=== PATIENT | male | born 1980 | race Caucasian/White ===

== ENCOUNTER 2016-08-05 06:05 | Emergency (ER) | payer MEDICAID ==
[2016-08-05] MEDS ORDERED: DEXAMETHASONE 10 MG/ML VIAL PO STA (07:24)
[2016-08-05] MEDS ORDERED: CHERRY SYRUP 10 ML UDC PO ONE (07:36)
[2016-08-05] MEDS ORDERED: DEXAMETHASONE 10 MG/ML VIAL ONE (07:36)
== END 2016-08-05 07:42 | disposition home or self-care (01) ==
DX: M10.9 Gout, unspecified (principal)
CPT/HCPCS: 99282; 99283; A9270

== ENCOUNTER 2016-09-02 10:01 | Outpatient (CLI) | payer MEDICAID | END 2016-09-02 10:02 | disposition home or self-care (01) | DX: Z00.00 Encounter for general adult medical examination without abnormal findings (principal); M10.9 Gout, unspecified ==

== ENCOUNTER 2016-09-22 15:16 | Outpatient (CLI) | payer MEDICAID | END 2016-09-22 15:17 | disposition home or self-care (01) | DX: G47.30 Sleep apnea, unspecified (principal); G47.8 Other sleep disorders; R06.83 Snoring; G47.10 Hypersomnia, unspecified ==

== ENCOUNTER 2016-10-27 15:43 | Outpatient (CLI) | payer MEDICAID | END 2016-10-27 15:44 | disposition home or self-care (01) | DX: G47.33 Obstructive sleep apnea (adult) (pediatric) (principal) ==

== ENCOUNTER 2016-11-25 08:35 | Outpatient (CLI) | payer MEDICAID | END 2016-11-25 08:36 | disposition home or self-care (01) | DX: N50.9 Disorder of male genital organs, unspecified (principal) ==

== ENCOUNTER 2016-12-02 05:42 | Emergency (ER) | payer MEDICAID ==
[2016-12-02] MEDS ORDERED: methylPREDNISolone ACETATE 80 MG/ML VIAL IM ONE (05:56)
[2016-12-02] MEDS ORDERED: methylPREDNISolone SUCCINATE 40 MG/ML VIAL ONE ×2 (05:57→05:59)
[2016-12-02] MEDS ORDERED: LIDOCAINE 2% 10 ML MDV ONE (05:57)
--- NOTE | 2016-12-02 06:22 | ED Physician Documentation ---
PD HPI LOWER EXT INJURY - Stated complaint Stated Complaint: LAKISHA FOOT PAIN - Chief complaint Chief Complaint: Ext Problem - History obtained from History obtained from: Patient, Family - History of Present Illness PD HPI LOW EXT INJURY LOCATION: Right, Knee Where injury occurred: Home Timing - onset: How many days ago (3) Timing - duration: Days Timing - details: Gradual onset, Still present Improved by: Rest, Immobilization Worsened by: Moving, Palpating Associated symptoms: Swelling. No: Weakness, Numbness, Tingling Similar symptoms before: Has not had sx before Recently seen: Not recently seen - Additional information Additional information: Patient is a 36 year old male wiht no significant past medical history who is presenting to the emergency department for right sided knee pain and swelling. patient states that the symptoms have been going on for the last few days. Patient denies any trauma but does report a history of gout in the past. Review of Systems Constitutional: denies: Fever, Chills Eyes: denies: Loss of vision, Photophobia Ears: denies: Ear pain, Drainage/discharge Nose: denies: Rhinorrhea / runny nose, Congestion, Epistaxis Throat: denies: Sore throat Cardiac: denies: Chest pain / pressure, Palpitations Respiratory: denies: Cough, Hemoptysis, Wheezing GI: denies: Abdominal Pain, Nausea, Vomiting, Constipation, Diarrhea : denies: Dysuria, Frequency Skin: denies: Rash, Lesions Musculoskeletal: reports: Extremity pain, Joint pain, Extremity swelling, Joint swelling, Pain with weight bearing. denies: Neck pain, Back pain Neurologic: denies: Generalized weakness, Focal weakness, Numbness, Difficulty speaking Immunocompromised: denies: Immunocompromised PD PAST MEDICAL HISTORY - Past Medical History Past Medical History: Yes Musculoskeletal: Gout - Past Surgical History Past Surgical History: Yes HEENT: Other - Present Medications Home Medications: Ambulatory Orders Medication Instructions Recorded Confirmed Indomethacin 25 mg PO Q6HR PRN #20 capsule 08/05/16 - Allergies Allergies/Adverse Reactions: Allergies Allergy/AdvReac Type Severity Reaction Status Date / Time No Known Drug Allergies Allergy Verified 08/05/16 06:29 - Social History Does the pt smoke?: No Smoking Status: Never smoker Does the pt drink ETOH?: Yes ETOH Use: Beer Does the pt have substance abuse?: No Substance Use and Type: Marijuana - Immunizations Immunizations are current?: Yes PD ED PE NORMAL - Vitals Vital signs reviewed: Yes - General General: Alert and oriented X 3, No acute distress, Well developed/nourished - HEENT HEENT: Atraumatic, PERRL, Pharynx benign - Neck Neck: Supple, no meningeal sign, No JVD - Cardiac Cardiac: RRR, No murmur - Respiratory Respiratory: No respiratory distress, Clear bilaterally - Abdomen Abdomen: Soft, Non tender, Non distended - Derm Derm: Normal color, Warm and dry, No rash - Neuro Neuro: Alert and oriented X 3, hook loader 2-12 intact, No motor deficit, No sensory deficit, Normal speech - Psych Psych: Normal mood, Normal affect PD ED PE EXPANDED - Extremities Extremities: Swelling, Joint effusion, Right knee (right knee swelling and effusion without surrounding erythema ) Results - Vitals Vitals: Vital Signs - 24 hr 12/02/16 05:49 Temperature 36.2 C L Heart Rate 87 Respiratory 20 Rate Blood Pressure 152/100 H O2 Saturation 100 Oxygen O2 Source Room air - Labs Labs: Laboratory Tests 12/02/16 06:11 Fluid Source SYNOVIAL Fluid Color YELLOW Fluid Clarity CLOUDY Fluid WBC 71335 Fluid RBC 9612 Procedures - Arthrocentesis Joint: Knee Preparation: Sterile prep and drape, Ultrasound used Anesthesia: Lidocaine 2% Fluid: Sent for cell count, Cloudy, Sent for crystals, Sent for culture, Fluid obtained - cc (20), Sent for glucose, Sent for protein Aftercare: No complications, Patient tolerated well PD MEDICAL DECISION MAKING - ED course Complexity details: reviewed old records, reviewed results, re-evaluated patient , considered differential, d/w patient ED course: Patient was seen and examined at bedside. artherocentisis was performed as described above. Patient tolerated the treatment well. Patient was signed over to Dr. Almaraz pending results. Departure - Departure Clinical Impression: Knee effusion, right Condition: Good Instructions: ED Effusion Knee
[2016-12-02 07:06] LABS: CC,BF RBC 9612 /mm^3
[2016-12-02 07:07] LABS: BF CLARITY CLOUDY; BF COLOR YELLOW
[2016-12-02] MEDS ORDERED: KETOROLAC 60 MG/2 ML VIAL ONE (07:33)
[2016-12-02] MEDS ORDERED: KETOROLAC 60 MG/2 ML VIAL IM STA (07:33)
[2016-12-02 07:34] LABS: LYMPHOCYTES %,BODY FLUID 0; MESOTHELIAL %, BF 0 %
[2016-12-02 08:30] LABS: BASOPHILS # (AUTO) 0.1 10^3/uL (0.0-0.1); BASOPHILS % (AUTO) 0.5 %; EOSINOPHILS # (AUTO) 0.1 10^3/uL (0.0-0.7); EOSINOPHILS % (AUTO) 1.1 %; HCT - HEMATOCRIT 43.3 % (42.0-52.0); HGB - HEMOGLOBIN 15.2 g/dL (14.0-18.0); LYMPHOCYTES # (AUTO) 1.3 10^3/uL (1.5-3.5); MEAN CORPUSCULAR HEMOGLOBIN 32.8 pg (27.0-31.0); MEAN CORPUSCULAR VOLUME 93.7 fL (80.0-94.0); MEAN PLATELET VOLUME 8.5 fL (7.4-11.4); MONOCYTES # (AUTO) 0.9 10^3/uL (0.0-1.0); MONOCYTES % (AUTO) 8.5 %; NEUTROPHILS # (AUTO) 8.4 10^3/uL (1.5-6.6); NEUTROPHILS % (AUTO) 77.9 %; RED BLOOD COUNT 4.63 10^6/uL (4.70-6.10); RED CELL DISTRIBUTION WIDTH 13.1 % (12.0-15.0); UNCORRECTED WHITE BLOOD COUNT 10.8 x10^3/uL; WHITE BLOOD COUNT 10.8 x10^3/uL (4.8-10.8)
[2016-12-02 08:44] LABS: ALBUMIN/GLOBULIN RATIO 1.1 (1.0-2.2); BILIRUBIN,TOTAL 1.5 mg/dL (0.2-1.0); CALCIUM 9.6 mg/dL (8.5-10.3); CREATININE 0.8 mg/dL (0.6-1.2); POTASSIUM 4.2 mmol/L (3.5-5.0); TOTAL PROTEIN 8.1 g/dL (6.7-8.2)
[2016-12-02] MEDS ORDERED: ONDANSETRON 4 MG/2 ML VIAL IVP STA (08:45)
[2016-12-02] MEDS ORDERED: HYDROmorphone 1 MG/ML SYRINGE IVP STA (08:45)
[2016-12-02] MEDS ORDERED: ONDANSETRON 4 MG/2 ML VIAL ONE (08:48)
[2016-12-02] MEDS ORDERED: HYDROmorphone 1 MG/ML SYRINGE ONE (08:48)
--- NOTE | 2016-12-02 08:48 | ED Physician Documentation ---
History of Present Illness - Stated complaint Stated Complaint: R KNEE PX - Chief complaint Chief Complaint: Ext Problem - History obtained from History obtained from: Patient - History of Present Illness Timing: How many days ago (3) - Additonal information Additional information: 36 y/o male with 3 days of right knee swelling and pain has severe pain this morning and this did not seem to improve with the colchicine. His care is turned over to me at shift change from Dr. Arnold with pending studies on his knee effusion. Review of Systems Constitutional: reports: Chills Musculoskeletal: reports: Joint pain, Joint swelling, Pain with weight bearing PD PAST MEDICAL HISTORY - Past Medical History Past Medical History: Yes Musculoskeletal: Gout - Past Surgical History Past Surgical History: Yes HEENT: Other - Present Medications Home Medications: Ambulatory Orders Medication Instructions Recorded Confirmed Indomethacin 25 mg PO Q6HR PRN #20 capsule 08/05/16 HYDROcod/ACETAM 5/325 [[place] 5/325] 1 - 2 ea PO Q6H PRN #15 tablet 12/02/16 - Allergies Allergies/Adverse Reactions: Allergies Allergy/AdvReac Type Severity Reaction Status Date / Time No Known Drug Allergies Allergy Verified 08/05/16 06:29 - Social History Does the pt smoke?: No Smoking Status: Never smoker Does the pt drink ETOH?: Yes ETOH Use: Beer Does the pt have substance abuse?: No Substance Use and Type: Marijuana - Immunizations Immunizations are current?: Yes PD ED PE NORMAL - Vitals Vital signs reviewed: Yes - General General: Alert and oriented X 3, No acute distress, Well developed/nourished - HEENT HEENT: Atraumatic, PERRL - Respiratory Respiratory: No respiratory distress - Derm Derm: Normal color, Warm and dry, Other - Extremities Extremities: No deformity, No edema, Other (There is tenderness swelling and pain to the right knee. ) - Neuro Neuro: No motor deficit, No sensory deficit, Normal speech - Psych Psych: Normal mood, Normal affect Results - Vitals Vitals: Vital Signs - 24 hr 12/02/16 12/02/16 05:49 07:43 Temperature 36.2 C L 36.8 C Heart Rate 87 81 Respiratory 20 15 Rate Blood Pressure 152/100 H 142/89 H O2 Saturation 100 96 Oxygen O2 Source Room air - Labs Labs: Microbiology 12/02/16 06:11 Body Fluid Culture - Preliminary Synovial Fluid Laboratory Tests 12/02/16 12/02/16 12/02/16 06:11 08:10 08:10 WBC 10.8 RBC 4.63 L Hgb 15.2 Hct 43.3 MCV 93.7 MCH 32.8 H MCHC 35.0 RDW 13.1 Plt Count 209 MPV 8.5 Neut # 8.4 H Lymph # 1.3 L [place] # 0.9 Eos # 0.1 Baso # 0.1 Absolute Nucleated RBC 0.00 Nucleated RBCs 0.0 ESR 6 Sodium Potassium Chloride Carbon Dioxide Anion Gap BUN Creatinine Estimated GFR (MDRD) Glucose Calcium Total Bilirubin AST ALT Alkaline Phosphatase C-Reactive Protein Total Protein Albumin Globulin Albumin/Globulin Ratio Lipase Fluid Source SYNOVIAL Fluid Color YELLOW Fluid Clarity CLOUDY Fluid WBC 34476 Fluid RBC 9612 Fluid Neutrophils % 95.0 Fluid Lymphocytes % 0 Fluid Monocytes % 5.0 Fld Mesothelial Cell % 0 Fluid Crystals NONE SEEN 12/02/16 08:10 WBC RBC Hgb Hct MCV MCH MCHC RDW Plt Count MPV Neut # Lymph # [place] # Eos # Baso # Absolute Nucleated RBC Nucleated RBCs ESR Sodium 136 Potassium 4.2 Chloride 99 L Carbon Dioxide 27 Anion Gap 10.0 BUN 6 Creatinine 0.8 Estimated GFR (MDRD) 108 Glucose 119 H Calcium 9.6 Total Bilirubin 1.5 H AST 87 H ALT 53 Alkaline Phosphatase 56 C-Reactive Protein 7.1 H Total Protein 8.1 Albumin 4.3 Globulin 3.8 Albumin/Globulin Ratio 1.1 Lipase 29 Fluid Source Fluid Color Fluid Clarity Fluid WBC Fluid RBC Fluid Neutrophils % Fluid Lymphocytes % Fluid Monocytes % Fld Mesothelial Cell % Fluid Crystals PD MEDICAL DECISION MAKING - ED course Complexity details: reviewed old records, reviewed results, re-evaluated patient , considered differential, d/w patient ED course: 36 y/o male with right sided knee pain and a good sized effusion has bad enough pain that he is not able to bear weight. His synovial fluid is with 53K WBC, 95 % neutrophils, his WBC is normal, ESR is normal and CRP is 7.1. There were no organisms seen on gram stain and the patient requires narcotic pain medication for relief of the pain. Dr. Walker is consulted in the case by phone and recommends pain management and follow up with him in 1-2 days for further treatment as indicated while awaiting culture results. Departure - Departure Disposition: 01 Home, Self Care Clinical Impression: Knee effusion, right Condition: Good Instructions: ED Effusion Knee Follow-Up: Cari Claire PA-C [Primary Care Provider] - Da Baltazar MD [Provider Admit Priv/Credential] - Prescriptions: HYDROcod/ACETAM 5/325 [[place] 5/325] 1 - 2 ea PO Q6H PRN #15 tablet PRN Reason: Pain Comments: follow up with Dr. Oneal in 1-2 days for results of your culture and further treatment. Forms: Activity restrictions
[2016-12-02 11:02] VITALS: BP 135/84
[2016-12-06 14:12] LABS: TEST RESULT REPORT (())
[2016-12-09 00:18] LABS: TEST RESULT REPORT (())
[2016-12-09 17:27] LABS: TEST RESULT REPORT (())
== END 2016-12-02 11:04 | disposition home or self-care (01) ==
LOC: ED 05:42
DX: M25.461 Effusion, right knee (principal)
CPT/HCPCS: 20605; 80053; 81599; 82945; 83690; 84560; 85025; 85651; 86140; 86430; 87070; 87205; 89051; 89060; 96372; 96374; 96375; 99284; J1170

== ENCOUNTER 2017-02-17 15:56 | Outpatient (CLI) | payer MEDICAID | END 2017-02-17 15:57 | disposition home or self-care (01) | LOC: SC 15:56 | PROVIDERS: ATTEND Nurse Practitioner Family | DX: G47.33 Obstructive sleep apnea (adult) (pediatric) (principal) | CPT/HCPCS: 99212; 99214 ==

== ENCOUNTER 2018-01-13 23:58 | Outpatient (CLI) | payer OTHER | END 2018-01-13 23:59 | disposition critical access hospital (66) | LOC: EMS 23:58 | PROVIDERS: ATTEND Surgery | DX: R51 Headache (principal); V47.5XXA Car driver injured in collision with fixed or stationary object in traffic accident, initial encounter; Y92.410 Unspecified street and highway as the place of occurrence of the external cause | CPT/HCPCS: A0425; A0427 ==

== ENCOUNTER 2018-01-14 00:58 | Emergency (ER) | payer MEDICAID, OTHER ==
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
[2018-01-14 03:57] VITALS: BP 138/88
== END 2018-01-14 03:55 | disposition home or self-care (01) ==
LOC: EDUNIT# → ED 00:58
DX: S09.90XA Unspecified injury of head, initial encounter (principal); S29.9XXA Unspecified injury of thorax, initial encounter; V47.5XXA Car driver injured in collision with fixed or stationary object in traffic accident, initial encounter; Y92.488 Other paved roadways as the place of occurrence of the external cause; M10.9 Gout, unspecified
CPT/HCPCS: 36415; 70450; 71046; 99283

== ENCOUNTER 2021-09-12 20:52 | Outpatient (CLI) | payer SELFPAY | END 2021-09-12 20:53 | disposition critical access hospital (66) | LOC: EMS 20:52 | DX: R41.82 Altered mental status, unspecified (principal) | CPT/HCPCS: A0425; A0429 ==

== ENCOUNTER 2021-09-12 21:15 | Emergency (ER) | payer SELFPAY ==
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
[2021-09-12 21:41] LABS: BASOPHILS # (AUTO) 0.1 10^3/uL (0.0-0.1); BASOPHILS % (AUTO) 1.8 %; EOSINOPHILS # (AUTO) 0.1 10^3/uL (0.0-0.7); HGB - HEMOGLOBIN 15.5 g/dL (14.0-18.0); LYMPHOCYTES # (AUTO) 2.1 10^3/uL (1.5-3.5); LYMPHOCYTES % (AUTO) 26.5 %; MEAN CORPUSCULAR HEMOGLOBIN 32.7 pg (27.0-31.0); MEAN CORPUSCULAR HGB CONC 34.4 g/dL (32.0-36.0); MEAN CORPUSCULAR VOLUME 94.9 fL (80.0-94.0); MEAN PLATELET VOLUME 9.8 fL (7.4-11.4); MONOCYTES # (AUTO) 0.9 10^3/uL (0.0-1.0); MONOCYTES % (AUTO) 11.4 %; NEUTROPHILS # (AUTO) 4.7 10^3/uL (1.5-6.6); NEUTROPHILS % (AUTO) 59.2 %; PLT - PLATELET COUNT 251 10^3/uL (130-450); RED BLOOD COUNT 4.74 10^6/uL (4.70-6.10); WHITE BLOOD COUNT 7.9 x10^3/uL (4.8-10.8)
[2021-09-12 21:51] LABS: ALBUMIN 4.6 g/dL (3.2-5.5); ALBUMIN/GLOBULIN RATIO 1.4 (1.0-2.2); BILIRUBIN,TOTAL 0.9 mg/dL (0.2-1.0); CALCIUM 8.5 mg/dL (8.5-10.3); CREATININE 0.8 mg/dL (0.6-1.2); ETOH - ETHANOL 482.6 mg/dL; POTASSIUM 3.5 mmol/L (3.5-5.0)
--- NOTE | 2021-09-12 22:24 | XRAY Report ---
PROCEDURE: Chest 2 View X-Ray INDICATIONS: AMS TECHNIQUE: 2 views of the chest. COMPARISON: Chest radiographs 01/14/2018. FINDINGS: Surgical changes and devices: None. Lungs and pleura: No pleural effusions or pneumothorax. Lungs are clear. Mediastinum: Mediastinal contours are normal. Heart size is normal. Bones and chest wall: No suspicious bony abnormalities. Soft tissues appear unremarkable. IMPRESSION: No acute cardiopulmonary abnormality. Reviewed by: Maico Wyatt MD on 09/12/2021 10:23 PM [facility] Approved by: Maico Wyatt MD on 09/12/2021 10:23 PM PST Station ID: [id number]
--- NOTE | 2021-09-12 22:25 | CT Report ---
PROCEDURE: HEAD WO INDICATIONS: AMS TECHNIQUE: Noncontrast 4.5 mm thick angled axial sections acquired from the foramen magnum to the vertex. For r adiation dose reduction, the following was used: automated exposure control, adjustment of mA and/or kV according to patient size. COMPARISON: CT head 01/14/2018. FINDINGS: Image quality: Excellent. CSF spaces: Basal cisterns are patent. No extra-axial fluid collections. Ventricles are normal in size and shape. Brain: No midline shift. No intracranial masses or hemorrhage. Blair-white matter interface is norm al. Skull and face: Calvarium and visualized facial bones are intact, without suspicious lesions. Sinuses: Visualized sinuses and mastoids are clear. IMPRESSION: No acute intracranial abnormality. Reviewed by: Maico Wyatt MD on 09/12/2021 10:24 PM PST Approved by: Maico Wyatt MD on 09/12/2021 10:24 PM PST Station ID: [id number]
[2021-09-12 22:56] VITALS: BP 148/96
== END 2021-09-12 23:01 | disposition home or self-care (01) ==
LOC: EDBD → EDUNIT# → ED 21:15
DX: F10.920 Alcohol use, unspecified with intoxication, uncomplicated (principal)
CPT/HCPCS: 36415; 80053; 80320; 83690; 85025; 93005; 99283; 99284

== ENCOUNTER 2023-03-11 22:37 | Outpatient (CLI) | payer SELFPAY | END 2023-03-11 23:59 | disposition EMS.NT | LOC: EMS 22:37 | DX: U07.1 COVID-19 (principal) ==

== ENCOUNTER 2023-06-28 14:42 | Emergency (ER) | payer OTHER ==
[2023-06-28 15:19] VITALS: BP 150/100; O2SAT 97
[2023-06-28] MEDS ORDERED: LIDOCAINE 1%-EPI 1:100000 20 ML MDV SUBQ STA (15:42)
--- NOTE | 2023-06-28 15:45 | ED Physician Documentation ---
PD HPI LOWER EXT INJURY - Stated complaint Stated Complaint: LT KNEE PX - Chief complaint Chief Complaint: Ext Problem - History obtained from History obtained from: Patient - Additional information Additional information: He has a history of gout in the knee and about 6 days ago started develop knee pain with increased swelling over the last few days. There was no trauma. He does not feel sick or feverish. PD PAST MEDICAL HISTORY - Past Medical History Past Medical History: No Musculoskeletal: Gout - Past Surgical History Past Surgical History: Yes HEENT: Other - Present Medications Home Medications: Ambulatory Orders Medication Instructions Recorded Confirmed Indomethacin 25 mg PO Q6HR PRN #20 capsule 08/05/16 HYDROcod/ACETAM 5/325 [[place] 5/325] 1 - 2 ea PO Q6H PRN #15 tablet 12/02/16 - Allergies Allergies/Adverse Reactions: Allergies Allergy/AdvReac Type Severity Reaction Status Date / Time No Known Drug Allergies Allergy Verified 06/28/23 15:17 - Social History Does the pt smoke?: No Smoking Status: Never smoker Does the pt drink ETOH?: Yes Does the pt have substance abuse?: Yes Substance Use and Type: Marijuana - Immunizations Immunizations are current?: Yes - POLST Patient has POLST: No PD ED PE NORMAL - Vitals Vital signs reviewed: Yes - General General: Alert and oriented X 3, No acute distress - Extremities Extremities: Other (He has a large effusion of the left knee but without much in the way of warmth or redness. No specific tenderness.) - Neuro Neuro: Alert and oriented X 3, Normal speech Results - Vitals Vitals: Vital Signs - 24 hr 06/28/23 15:13 Temperature 36.9 C Heart Rate 106 H Respiratory 16 Rate Blood Pressure 150/100 H O2 Saturation 97 Oxygen O2 Source Room air - Labs Labs: Laboratory Tests 06/28/23 06/28/23 16:05 16:05 Fluid Source SYNOVIAL Fluid Color YELLOW Fluid Clarity CLOUDY Fluid WBC 63845 Fluid RBC < 3000 Fluid Neutrophils % 68 Fluid Lymphocytes % 5 Fluid Monocytes % 7 Fluid Eosinophils % 8 Fluid Macrophages % 12 Fld Mesothelial Cell % Not Reportable Fluid Crystals NONE SEEN Procedures - Arthrocentesis Joint: Knee, Left Preparation: Consent obtained, Sterile prep and drape Anesthesia: Lidocaine 1% Fluid: Sent for cell count, Sent for crystals, Sent for culture, Fluid obtained - cc (80ml) Aftercare: Dressing applied, Other (Injected 5 mL 0.5% ropivacaine sterilely into the joint), Patient tolerated well PD Medical Decision Making - ED course ED course: He has had gout in that knee before and now has a large atraumatic effusion. Clinically does not look infected. Therapeutic/diagnostic arthrocentesis done with 80 mL removed from the left knee with symptomatic relief. Analysis of the synovial fluid initially shows a white count and differential most consistent with some sort of inflammatory issue but negative crystal exam. Departure - Departure Disposition: 01 Home, Self Care Clinical Impression: Knee effusion, left Condition: Good Record reviewed to determine appropriate education?: Yes Instructions: ED Effusion Knee Follow-Up: [facility] [Provider Group] Comments: I will call you [phone] if any concerning findings of infection are found on the knee fluid. That said it does not look infected clinically. Tylenol and/or ibuprofen as needed for the pain but she should be feeling much better now that the fluid is drained. Reasonable to follow-up with one of our orthopedic surgeons and the number is on this form. Return for new or worsening symptoms. Forms: PCP List Discharge Date/Time: 06/28/23 16:18
[2023-06-28] MEDS ORDERED: ROPIVACAINE 0.5% PF 20 ML VIAL SUBQ STA (15:48)
--- NOTE | 2023-06-28 16:41 | XRAY Report ---
PROCEDURE: Knee 4 View LT INDICATIONS: Trauma TECHNIQUE: 3 views of the knee(s) were acquired. COMPARISON: None. FINDINGS: Bones: No fractures or dislocations. No suspicious bony lesions. Mild tricompartmental periarticu lar osteophyte formation. Soft tissues: No knee joint effusion. No suspicious soft tissue calcifications or masses. IMPRESSION: Osteoarthritis. No acute fracture. No osseous lesion. If symptoms and/or clinical suspicion for patho logy continue, further assessment with repeat plain films, or advanced imaging (e.g., CT, MRI, or bon e scan) is recommended for further assessment. Reviewed by: Umm Negrete MD on 06/28/2023 4:39 PM PST Approved by: Umm Negrete MD on 06/28/2023 4:39 PM PST Station ID: [id number]
[2023-06-28 16:42] LABS: CC,BF RBC < 3000 /mm^3; CC,BF WBC 14090 /mm^3
[2023-06-28 16:43] LABS: BF SOURCE SYNOVIAL
[2023-06-28 16:44] LABS: BF CLARITY CLOUDY; BF COLOR YELLOW
[2023-06-28 17:00] LABS: LYMPHOCYTES %,BODY FLUID 5 %; NEUTROPHILS %, BF 68 %
[2023-06-28 17:01] LABS: EOSINOPHILS %,BODY FLUID 8 %; MACROPHAGES %,BODY FLUID 12 %; MONOCYTES %,BODY FLUID 7 %
== END 2023-06-28 16:18 | disposition home or self-care (01) ==
LOC: ED 14:42
DX: M25.462 Effusion, left knee (principal)
CPT/HCPCS: 20610; 87070; 87205; 89051; 89060; 99283

== ENCOUNTER 2023-10-18 14:16 | Outpatient (CLI) | payer OTHER ==
[2023-10-18 19:55] LABS: BASOPHILS # (AUTO) 0.1 10^3/uL (0.0-0.1); BASOPHILS % (AUTO) 0.7 %; EOSINOPHILS # (AUTO) 0.3 10^3/uL (0.0-0.7); EOSINOPHILS % (AUTO) 3.4 %; HCT - HEMATOCRIT 46.6 % (42.0-52.0); HGB - HEMOGLOBIN 15.3 g/dL (14.0-18.0); LYMPHOCYTES % (AUTO) 27.1 %; MEAN CORPUSCULAR HGB CONC 32.8 g/dL (32.0-36.0); MEAN CORPUSCULAR VOLUME 94.3 fL (80.0-94.0); MEAN PLATELET VOLUME 10.9 fL (7.4-11.4); MONOCYTES # (AUTO) 0.8 10^3/uL (0.0-1.0); MONOCYTES % (AUTO) 10.5 %; NEUTROPHILS # (AUTO) 4.4 10^3/uL (1.5-6.6); NEUTROPHILS % (AUTO) 58.2 %; PLT - PLATELET COUNT 249 10^3/uL (130-450); RED BLOOD COUNT 4.94 10^6/uL (4.70-6.10); RED CELL DISTRIBUTION WIDTH 12.3 % (12.0-15.0); WHITE BLOOD COUNT 7.5 x10^3/uL (4.8-10.8)
[2023-10-18 20:08] LABS: ALBUMIN 4.5 g/dL (3.2-5.5); ALBUMIN/GLOBULIN RATIO 1.7 (1.0-2.2); ALKALINE PHOSPHATASE 40 IU/L (42-121); ALT ALANINE AMINOTRANSFERASE 11 IU/L (10-60); AST ASPARTATE AMINOTRANSFERASE 20 IU/L (10-42); BILIRUBIN,TOTAL 0.8 mg/dL (0.2-1.0); BUN - BLOOD UREA NITROGEN 14 mg/dL (6-20); CALCIUM 9.8 mg/dL (8.5-10.3); CARBON DIOXIDE - CO2 27 mmol/L (21-32); CHLORIDE 102 mmol/L (101-111); CHOL/HDL RATIO 4.1 (<5.0); CHOLESTEROL 235 mg/dL; CREATININE 0.8 mg/dL (0.6-1.3); GFR - MDRD 105 (>89); GLUCOSE 91 mg/dL (74-104); HDL CHOLESTEROL 57 mg/dL; LDL CHOLESTEROL,CALCULATED 155 mg/dL; LDL/HDL RATIO 2.7 (<3.6); POTASSIUM 3.9 mmol/L (3.5-4.5); SODIUM 136 mmol/L (135-145); TOTAL PROTEIN 7.2 g/dL (6.4-8.9); TRIGLYCERIDES 117 mg/dL (48-352); VLDL CHOLESTEROL 23 mg/dL
[2023-10-18 20:22] LABS: THYROID STIMULATING HORMONE 1.89 uIU/mL (0.34-5.60)
== END 2023-10-18 14:17 | disposition home or self-care (01) ==
LOC: LAB.S 14:16
PROVIDERS: ATTEND Physician Assistant Medical
DX: Z00.00 Encounter for general adult medical examination without abnormal findings (principal)
CPT/HCPCS: 36415; 80053; 80061; 83721; 84443; 85025

== ENCOUNTER 2023-11-30 23:56 | Emergency (ER) | payer SELFPAY ==
[2023-12-01 00:27] LABS: BILIRUBIN,URINE NEGATIVE (NEGATIVE); GLUCOSE, URINE (UA) NEGATIVE (NEGATIVE); KETONES,URINE (UA) NEGATIVE (NEGATIVE); LEUKOCYTE ESTERASE, URINE NEGATIVE (NEGATIVE); NITRITE,URINE NEGATIVE (NEGATIVE); OCCULT BLOOD,URINE NEGATIVE (NEGATIVE); PH,URINE 6.5 PH (5.0-7.5); PROTEIN,URINE NEGATIVE (NEGATIVE); UROBILINOGEN,URINE 0.2 (NORMAL) E.U./dL (NORMAL)
[2023-12-01 00:30] LABS: CLARITY,URINE CLEAR (CLEAR)
[2023-12-01 00:39] LABS: AMPHETAMINE SCREEN,URINE NEGATIVE (NEGATIVE); BARBITURATE SCREEN,UR NEGATIVE (NEGATIVE); BENZODIAZEPINES SCREEN, URINE POSITIVE (NEGATIVE); BUPRENORPHINE SCREEN, URINE NEGATIVE (NEGATIVE); COCAINE SCREEN URINE NEGATIVE (NEGATIVE); METHADONE SCREEN, URINE NEGATIVE (NEGATIVE); METHAMPHETAMINES SCREEN, URINE NEGATIVE (NEGATIVE); OPIATE SCREEN, URINE NEGATIVE (NEGATIVE); OXYCODONE SCREEN, URINE NEGATIVE (NEGATIVE); THC CANNABINOID SCREEN, URINE NEGATIVE (NEGATIVE); TRICYCLIC ANTIDEPRESSANT,URINE NEGATIVE (NEGATIVE)
--- NOTE | 2023-12-01 00:46 | ED Physician Documentation ---
PD HPI MHE - Stated complaint Stated Complaint: SI/OD - Chief complaint Chief Complaint: MHE - History obtained from History obtained from: Patient, Family - Additional information Additional information: HPI from patient as well as his significant other. Patient says he has been feeling both anxious and depressed for the last 2 weeks, has had increased alcohol intake is in the same timeframe but particularly indulging since earlier this evening. He tells me he has had thoughts of "self-harm" (per patient), but strongly denies suicidal intent. The patient and his significant other tell me that earlier this evening he took 2 tablets of Librium from a prescription of a total of 10 tablets that was filled a year ago. Significant other says that patient "self treats with alcohol". Both the patient and his significant other indicates he has a history of alcoholism but that he had significantly cut down his alcohol intake until the past two weeks. Patient significant other is 5 months and both she and the patient indicated to me that this is weighing heavily and the decision to come to the emergency department tonight; they are both indicating to me that there chief concern is not his alcohol intake but, rather, his feelings of depression anxiety over the past 2 weeks along with rapid and unpredictable mood swings. The significant other indicates that, in the course of a few hours, and often more than once per day over the past 2 weeks, the patient can go from upbeat/cheerful to angry and depressed.Patient significant other indicates that friend to hang himself earlier this evening; the patient admits this but denies any true intent. PD PAST MEDICAL HISTORY - Past Medical History Past Medical History: Yes Musculoskeletal: Gout - Past Surgical History Past Surgical History: Yes HEENT: Other - Present Medications Home Medications: Ambulatory Orders Medication Instructions Recorded Confirmed chlordiazePOXIDE [Librium] 25 mg PO BID PRN 12/01/23 12/01/23 - Allergies Allergies/Adverse Reactions: Allergies Allergy/AdvReac Type Severity Reaction Status Date / Time No Known Drug Allergies Allergy Verified 12/01/23 00:20 - Social History Does the pt smoke?: No Smoking Status: Never smoker Does the pt drink ETOH?: Yes Does the pt have substance abuse?: No Substance Use and Type: Marijuana - Immunizations Immunizations are current?: Yes - POLST Patient has POLST: No PD ED PE NORMAL - Vitals Vital signs reviewed: Yes - General General: Alert and oriented X 3, No acute distress, Well developed/nourished, Other (slurred speech; many of his answers to my questions are vague) - HEENT HEENT: Atraumatic, PERRL, EOMI - Cardiac Cardiac: RRR, No murmur - Respiratory Respiratory: No respiratory distress, Clear bilaterally - Abdomen Abdomen: Soft, Non tender - Neuro Neuro: Alert and oriented X 3, skinning machine feeder 2-12 intact, No motor deficit, No sensory deficit Eye Opening: Spontaneous Motor: Obeys Commands Verbal: Oriented GCS Score: 15 PD ED PE EXPANDED - Psych Psych: Intoxicated / AOB Results - Vitals Vitals: Vital Signs - 24 hr 12/01/23 12/01/23 00:00 03:10 Temperature 36.7 C Heart Rate 83 80 Respiratory 18 15 Rate Blood Pressure 147/89 H 138/98 H O2 Saturation 97 95 Oxygen O2 Source Room air - Labs Labs: Laboratory Tests 12/01/23 12/01/23 12/01/23 00:12 00:45 00:45 WBC 6.6 RBC 4.86 Hgb 15.1 Hct 46.0 MCV 94.7 H MCH 31.1 H MCHC 32.8 RDW 12.3 Plt Count 247 MPV 9.3 Neut # (Auto) 2.7 Lymph # (Auto) 3.0 [place] # (Auto) 0.5 Eos # (Auto) 0.3 Baso # (Auto) 0.1 Absolute Nucleated RBC 0.00 Nucleated RBC % 0.0 Sodium 144 Potassium 3.9 Chloride 105 Carbon Dioxide 29 Anion Gap 10.0 BUN 7 Creatinine 0.9 Estimated GFR (MDRD) 91 Glucose 103 Calcium 9.2 Total Bilirubin 0.4 AST 36 ALT 18 Alkaline Phosphatase 42 Total Protein 7.5 Albumin 4.8 Globulin 2.7 Albumin/Globulin Ratio 1.8 Lipase < 10 L TSH 2.51 Urine Color LT. YELLOW Urine Clarity CLEAR Urine pH 6.5 Ur Specific [place] <=1.005 Urine Protein NEGATIVE Urine Glucose (UA) NEGATIVE Urine Ketones NEGATIVE Urine Occult Blood NEGATIVE Urine Nitrite NEGATIVE Urine Bilirubin NEGATIVE Urine Urobilinogen 0.2 (NORMAL) Ur Leukocyte Esterase NEGATIVE Ur Microscopic Review NOT INDICATED Urine Culture Comments NOT INDICATED Salicylates < 1.5 Urine Opiates Screen NEGATIVE Ur Buprenorphine Scrn NEGATIVE Ur Oxycodone Screen NEGATIVE Urine Methadone Screen NEGATIVE Acetaminophen 0.3 Ur Barbiturates Screen NEGATIVE Ur Tricyclics Screen NEGATIVE Ur Phencyclidine Scrn NEGATIVE Ur Amphetamine Screen NEGATIVE U Methamphetamines Scrn NEGATIVE U Benzodiazepines Scrn POSITIVE H Urine Cocaine Screen NEGATIVE U Cannabinoids Screen NEGATIVE Ur Drug Screen Comment CUTOFF CONC BELOW: Ethyl Alcohol 360.2 12/01/23 07:18 WBC RBC Hgb Hct MCV MCH MCHC RDW Plt Count MPV Neut # (Auto) Lymph # (Auto) [place] # (Auto) Eos # (Auto) Baso # (Auto) Absolute Nucleated RBC Nucleated RBC % Sodium Potassium Chloride Carbon Dioxide Anion Gap BUN Creatinine Estimated GFR (MDRD) Glucose Calcium Total Bilirubin AST ALT Alkaline Phosphatase Total Protein Albumin Globulin Albumin/Globulin Ratio Lipase TSH Urine Color Urine Clarity Urine pH Ur Specific [place] Urine Protein Urine Glucose (UA) Urine Ketones Urine Occult Blood Urine Nitrite Urine Bilirubin Urine Urobilinogen Ur Leukocyte Esterase Ur Microscopic Review Urine Culture Comments Salicylates Urine Opiates Screen Ur Buprenorphine Scrn Ur Oxycodone Screen Urine Methadone Screen Acetaminophen Ur Barbiturates Screen Ur Tricyclics Screen Ur Phencyclidine Scrn Ur Amphetamine Screen U Methamphetamines Scrn U Benzodiazepines Scrn Urine Cocaine Screen U Cannabinoids Screen Ur Drug Screen Comment Ethyl Alcohol 231.1 PD Medical Decision Making - ED course Complexity details: reviewed results, re-evaluated patient, considered differential, d/w patient ED course: Between the patient and his significant other, it is not particularly clear what is/are their desired goal(s) of this ED visit. I specifically asked if his concern is alcohol withdrawal and/or he is desiring treatment for alcoholism; he indicates to me that this is not his concern or his goal of today's visit. They both seem to be indicating to me that they are mostly concerned about his mood swings depression/anxiety and how this can be better treated then self- medicating with alcohol. I recommended a telepsychiatric consultation and the patient indicates he is very much interested in this option. Unfortunately, his serum ethanol level is quite high (0.360) and thus he is held in ED throughout my shift pending both clinical sobriety as well as a repeat alcohol level that is in an appropriate range to obtain the telepsychiatric consult. Care of this patient is turned over to oncoming ED physician (Dr. Logan). ER abdominal panel is normal, and CBC is normal except for (non-contributory) findings of high MCV, MCH. UA normal. UDS positive for benzodiazepines. Departure - Departure Forms: PCP List
[2023-12-01 00:48] LABS: BASOPHILS # (AUTO) 0.1 10^3/uL (0.0-0.1); BASOPHILS % (AUTO) 0.9 %; EOSINOPHILS # (AUTO) 0.3 10^3/uL (0.0-0.7); EOSINOPHILS % (AUTO) 4.6 %; HGB - HEMOGLOBIN 15.1 g/dL (14.0-18.0); LYMPHOCYTES % (AUTO) 46.1 %; MEAN CORPUSCULAR HEMOGLOBIN 31.1 pg (27.0-31.0); MEAN CORPUSCULAR HGB CONC 32.8 g/dL (32.0-36.0); MEAN CORPUSCULAR VOLUME 94.7 fL (80.0-94.0); MEAN PLATELET VOLUME 9.3 fL (7.4-11.4); MONOCYTES # (AUTO) 0.5 10^3/uL (0.0-1.0); MONOCYTES % (AUTO) 7.7 %; NEUTROPHILS # (AUTO) 2.7 10^3/uL (1.5-6.6); NEUTROPHILS % (AUTO) 40.4 %; PLT - PLATELET COUNT 247 10^3/uL (130-450); RED BLOOD COUNT 4.86 10^6/uL (4.70-6.10); RED CELL DISTRIBUTION WIDTH 12.3 % (12.0-15.0); WHITE BLOOD COUNT 6.6 x10^3/uL (4.8-10.8)
[2023-12-01 01:03] LABS: ACETAMINOPHEN 0.3 ug/mL; ALBUMIN 4.8 g/dL (3.2-5.5); ALBUMIN/GLOBULIN RATIO 1.8 (1.0-2.2); ALKALINE PHOSPHATASE 42 IU/L (42-121); ALT ALANINE AMINOTRANSFERASE 18 IU/L (10-60); AST ASPARTATE AMINOTRANSFERASE 36 IU/L (10-42); BILIRUBIN,TOTAL 0.4 mg/dL (0.2-1.0); BUN - BLOOD UREA NITROGEN 7 mg/dL (6-20); CALCIUM 9.2 mg/dL (8.5-10.3); CARBON DIOXIDE - CO2 29 mmol/L (21-32); CHLORIDE 105 mmol/L (101-111); CREATININE 0.9 mg/dL (0.6-1.3); ETOH - ETHANOL 360.2 mg/dL; GFR - MDRD 91 (>89); GLUCOSE 103 mg/dL (74-104); POTASSIUM 3.9 mmol/L (3.5-4.5); SODIUM 144 mmol/L (135-145); TOTAL PROTEIN 7.5 g/dL (6.4-8.9)
[2023-12-01 01:04] LABS: LIPASE < 10 U/L (11-82); SALICYLATE < 1.5 mg/dL
[2023-12-01 01:18] LABS: THYROID STIMULATING HORMONE 2.51 uIU/mL (0.34-5.60)
--- NOTE | 2023-12-01 08:17 | ED Physician Documentation ---
ED Addendum - Addendum Addendum: 12/01/23 Patient care assumed at shift change. Patient is here with alcohol intoxication and also having issues with depression and mood and making suicidal statements. His alcohol level was too elevated last night for telepsychiatry. Will recheck this morning. 12/01/23 12:26 Reevaluated patient. He is speaking clearly. He states that recently he has been under a lot of stress with work and expecting a new baby. He has not been able to be outdoors as much which is how he normally gareth with stress. He states that last night he made a poor decision to drink a bunch of alcohol. He states he does not feel suicidal. He is looking forward To the of his new baby. He does not feel like he needs to be hospitalized for the suicidal statements he made last night. At this time he appears clinically sober and is not suicidal. Therefore I will have social work speak to the patient. 12/01/23 16:06 Social work has seen the patient and patient's EtOH level has come down to 88. He is contracted for safety. Per social work patient is okay for discharge. He is comfortable with going home and at this time does not exhibit criteria for involuntary detainment. Departure - Departure Disposition: 01 Home, Self Care Clinical Impression: Alcohol intoxication, Psychiatric symptoms Condition: Stable Instructions: ED Alcohol Intoxication, ED Depression Comments: Please utilize the resources given to you by social work. Return to the ER if you have any worsening symptoms such as hurting yourself. Follow-up with [facility] at [phone] to schedule psychiatric care and counseling. [facility] [address] [place] [address] Main [facility] offers a monitored and safe setting for individuals withdrawing from alcohol and drugs, and counseling for individuals experiencing a mental health crisis. All services are provided in a 10-bed facility where intensive medical monitoring is required along with stabilization services. The goal of these services is to assess a clients men bhavana health and substance use disorder related needs, and assist them in accessing the services they need to recover. Help is available Speak with someone today [phone] Crisis Lif[facility] Hours: Available 24 hours. Forms: PCP List
[2023-12-01 16:39] VITALS: BP 157/101; O2SAT 98
== END 2023-12-01 16:12 | disposition home or self-care (01) ==
LOC: ED 23:56
DX: F10.129 Alcohol abuse with intoxication, unspecified (principal); Y90.8 Blood alcohol level of 240 mg/100 ml or more; F32.A Depression, unspecified; R45.851 Suicidal ideations; Z79.899 Other long term (current) drug therapy
CPT/HCPCS: 36415; 80053; 80143; 80179; 80306; 81001; 81003; 82077; 83690; 84443; 85025; 87086; 99283; 99284